=== PATIENT | female | born 1990 | race Caucasian/White ===

== ENCOUNTER 2018-07-19 00:29 | Outpatient (CLI) | payer MEDICAID, SELFPAY ==
--- NOTE | 2018-07-19 12:51 | DI.US_ITS ---
SYMPTOMS/DIAGNOSIS: MENORRHAGIA, M92.1-EXCESSIVE AND FREQUENT MENSTRUATION WITH IRREGULAR CYCLE, POLYCYSTIC OVARIAN SYNDROME, E28.2 PELVIC ULTRASOUND: Transabdominal and transvaginal examination was performed. The uterus measures 8 cm long x 3.9 cm AP x 3.8 cm transverse. The endometrial stripe is within normal limits at 1.0 cm. No myometrial masses present. Cervical nabothian cysts are noted. The right ovary measures 3.2 x 1.6 x 2.1 cm, the left ovary measures 2.7 x 1.7 x 2.4 cm. Small follicular cysts are present. There is normal blood flow to the ovaries. No suspicious ovarian mass or torsion is present. There is a small amount of free fluid in the cul-de-sac, which is likely physiologic. IMPRESSION: Essentially unremarkable pelvic ultrasound.
== END 2018-07-19 00:49 ==
PROVIDERS: PCP Nurse Practitioner; Visit Provider Nurse Practitioner
DX: N92.1 Excessive and frequent menstruation with irregular cycle (principal); E28.2 Polycystic ovarian syndrome
CPT/HCPCS: 76830; 76856

== ENCOUNTER 2019-05-08 12:03 | Outpatient (CLI) | payer MEDICAID, SELFPAY ==
[2019-05-08 12:40] LABS: HCT 46.1 % (36.0-46.0); HGB 15.3 g/dL (12.0-15.5); Mean Corp. HGB Concentration 33.2 g/dL (32.0-36.0); Mean Corpuscular Hemoglobin 30.4 pg (27.0-33.0); Mean Corpuscular Volume 91.7 fL (80-95); Mean Platelet Volume 11.7 fL (8.0-11.0); Platelet Count 274 x1000/uL (130-400); RBC 5.03 m/cumm (4.00-5.20); RBC Distribution Width 14.4 % (11.7-14.6); White Blood Cell Count 8.34 k/cumm (4.4-10.8)
[2019-05-08 13:00] LABS: Hemoglobin A1C 5.8 % (4.5-6.2)
[2019-05-08 13:26] LABS: ESR 23 mm/hr (0-20)
[2019-05-08 13:39] LABS: ALT 34 U/L (12-78); AST 15 U/L (15-37); Alkaline Phosphatase 81 U/L (46-116); Anion Gap 10.8 mmol/L (3-11); BUN 20 mg/dL (7-18); Bilirubin, Total 0.3 mg/dL (0.2-1.0); CO2 25.2 mmol/L (21.0-32.0); CREATININE 0.98 mg/dL (0.55-1.02); Calcium 9.2 mg/dL (8.5-10.1); Calculated LDL 169 mg/dL; Chloride 104 mmol/L (98-107); Cholesterol 234 mg/dL (50-200); Ferritin 114 ng/mL (8-388); Glucose 100 mg/dL (70-100); HDL Cholesterol 36 mg/dL (40-60); Potassium 4.5 mmol/L (3.5-5.1); Sodium 140 mmol/L (136-145); TSH (W/Ref FT4) 3.35 uIU/mL (0.36-3.74); Total Protein 7.8 g/dL (6.4-8.2); Triglyceride 148 mg/dL (30-150); Vitamin B12 439 pg/mL (193-986)
[2019-05-08 13:51] LABS: C-Reactive Protein 1.18 mg/dL (0.0-0.3)
[2019-05-09 10:48] LABS: Lyme Ab w Rflx to Lyme Confirm Negative
[2019-05-09 11:45] LABS: Rheumatoid Factor <8 IU/mL (<12.5)
[2019-05-09 14:13] LABS: ANA Interpretation Negative (NEGAT)
[2019-05-10 12:02] LABS: IgA 195 mg/dL (85-499); Interpretation SEE COMMENTS; Tissue Transglutaminase IgA <1.2 U/mL (<4.0)
== END 2019-05-08 12:23 ==
PROVIDERS: PCP Nurse Practitioner; Visit Provider Nurse Practitioner
DX: M25.40 Effusion, unspecified joint (principal); M25.50 Pain in unspecified joint; R53.83 Other fatigue; R14.0 Abdominal distension (gaseous)
CPT/HCPCS: 36415; 80053; 80061; 82784; 83516; 83721; 85027; 85652; 82607; 82728; 83036; 84443; 86038; 86140; 86431; 86618

== ENCOUNTER 2020-05-15 10:10 | Outpatient (CLI) | payer MEDICAID, SELFPAY ==
[2020-05-18 17:57] LABS: SARS-CoV-2 RNA Undetected (Undetected); SARS-CoV-2 Specimen Source Nasopharynx
== END 2020-05-15 10:30 ==
PROVIDERS: PCP Nurse Practitioner; Visit Provider Nurse Practitioner
DX: Z11.59 Encounter for screening for other viral diseases (principal)
CPT/HCPCS: U0003

== ENCOUNTER 2021-05-01 11:17 | Observation (INO) | payer MEDICAID, SELFPAY ==
[2021-05-01] VITALS (40 sets, daily range): BP systolic 105–149; BP diastolic 50–97; PULSE 56–143; RESP 9–24; TEMP 36.2–37.1; O2SAT 96–100
--- NOTE | 2021-05-01 11:15 | RT.EKG_ITS ---
APPROVED REPORT Exam: Resting ECG Reason for Exam: chest pain Patient Location: E HR:77 bpm ECG Measurements Heart Rate 77 AXIS [place] 138 P 38 QRSd 77 QRS 67 QT 362 T 49 QTc 409 Conclusion Sinus rhythm...normal P axis, V-rate 60- 99. No STEMI. I have reviewed and interpreted ECG and agree with software generated interpretation.
--- NOTE | 2021-05-01 11:24 | ED.GENADUL_ITS ---
Discharge Plan Disposition Patient Disposition: [facility] INPATIENT Condition: Stable Discharge Details Clinical Impression: Pulmonary emboli, DVT (deep venous thrombosis) Admit Date/Time: 05/01/21 15:01 Admit Provider: Alfa Martínez Attending Provider: Alfa Martínez Primary Care Provider: Mercedes Kasper ED Provider: Kirsten Funez Discharge Data Discharge Date/Time-TO BE ENTERED AT DEPARTURE: 05/01/21 16:32 Medical Decision Making Patient is a pleasant 31-year-old female, company by significant other, with chief complaint of right leg pain and chest tightness. She reports that the right leg pain began on the anterior aspect of the foot, she felt that this was more consistent with plantar fasciitis. States that over the past week however it has began to spread and is now up the posterior aspect of the knee into the a nterior thigh. She denies any trauma. She does state that initially she had some ecchymotic areas in this region which is resolved. Last night, she began having some chest tightness. States that this is worse when she is laying down or at rest, improves when upright and with activity. She denies any fevers or chills. Pain is not worse with deep inspiration or coughing. States that she is feeling quite anxious. She states that she her sister from complications with blood clot at the age of 28. Sister was a smoker and on hormonal supplements. On exam, patient appears anxious. She appears nontoxic. No respiratory distress, oxygen is 1% on the monitor currently. She is slightly tachycardic with a heart rate in the low 100s. Cardiac exam is otherwise normal with no m urmurs rubs or gallops. Lungs are clear on auscultation, abdomen benign. She is 2+ distal pulses. She does have pain with palpation over the heel and the arch of the foot consistent with her initial concern of plantar fasciitis. Did not appreciate any calf swelling, no palpable cord. No pain is elicited with palpation of the posterior aspect of the right lower extremity. Differential at this time is most concerning for DVT and possible PE. Also consider plantar fasciitis, muscle discomfort, electrolyte abnormality, anxiety. Will obtain baseline labs, EKG. Consistent with patient who is in agreement. Labs reviewed. No leukocytosis, stable H&H. Her D-dimer is elevated at 691. We will move forward with CT for PE protocol. Creatinine slightly elevated at 1.1, patient is receiving IV fluids currently. Troponin within normal limits. Given the length of time symptoms have been going on, I do not feel that repeat troponin is warranted. Patient just back from CT. We do have an ultrasound unavailable at this time for short period. Will move forward with DVT study of the right lower extremity. UDS negative CT reviewed the radiology: FINDINGS: Pulmonary arteries: There is a small right lower lobe embolus series 8, images 275-350 and series 10, images 48-50. There may be 1 or 2 tiny right upper lobe medial filling defects and 2 tiny left upper lobe subsegmental defects. Aorta: Unremarkable. No aortic aneurysm. No aortic dissection. Lungs: See Pulmonary arteries finding. Pleural spaces: Unremarkable. No pneumothorax. No pleural effusion. Heart: Unremarkable. No cardiomegaly. No pericardial effusion. Lymph nodes: Unremarkable. No enlarged lymph nodes. Bones/joints: Unremarkable. No acute fracture. Soft tissues: Unremarkable. IMPRESSION: Bilateral pulmonary emboli with overall small clot burden. Largest focus is at the right lung base. No evidence for right heart strain. discussed his findings with the patient. She became much more anxious after discussing this, particularly given her sister's passing few years ago from the same diagnosis. Begin anticoagulating the patient. Will give 0.5 mg of Ativan at her request to help with her anxiety. As patient does have bilateral clot burden, is incredibly anxious, I do feel that inpatient admission is appropriate at this time for continued monitoring. Patient voiced understanding and agreement with this plan. At her request, I did contact her mother to relay these findings. Consulted with Dr. Martínez who agrees to admission for continued monitoring in the setting of bilateral PE. He and I discussed the choice of anticoagulation plan with the patient to be done on [facility]. Patient also benefit from screening for congenital coagulopathy particularly with the of her sister at a young age. All of their questions and concerns were addressed in agreement with this plan. HPI General Mode of arrival: ambulatory . Date/Time Provider Initiated Documentation: 05/01/21 11:17 . Limitations to Documentation: no limitations . Information obtained by: patient, family (s/o) and RN notes reviewed . History of Present Illness 31 year old F presents to the emergency department with the chief complaint of right calf pain, chest tightness, described as moderate, with intensity rated at 6. Quality is described as aching, and is localized to the chest, right and lower extremity. Patient reports no radiation. Patient started experiencing this week(s) (1) and it has been constant (progressively worsening. CP began last night). Immobilization improves symptom(s), (RLQ pain improved with immobilization and elevation) and Movement improves symptom(s), (chest discomfort improves with movement) Patient notes chest pain, fever/chills (chills, no fevers), malaise and shortness of breath; denies cough, headaches, loss of appetite, nausea/vomiting, rash, syncope and weakness. Patient did receive the following treatments prior to arrival, none Related Data Home Medications Medication Instructions Recorded Confirmed acetaminophen [Tylenol] 650 mg PO Q6H PRN PRN #0 tab 05/02/21 Previous Rx's Medication Instructions Recorded acetaminophen [Tylenol] 650 mg PO Q6H PRN PRN #0 tab 05/02/21 Allergies Allergy/AdvReac Type Severity Reaction Status Date / Time No Known Allergies Allergy Verified 05/01/21 11:28 Review of Systems Constitutional Constitutional: Reports as per HPI, Denies chills, Denies fever(s), Denies headache(s), Denies lethargy and Denies poor appetite Eyes Eyes: Denies change in vision ENT Ears, Nose, Mouth, and Throat: Denies dizziness and Denies headache(s) Cardiovascular Cardiovascular: Reports as per HPI, Reports dyspnea and Denies dyspnea on exertion Respiratory Respiratory: Reports as per HPI, Denies chest congestion, Denies cough, Denies pain on inspiration, Denies pain with cough, Reports dyspnea, Denies dyspnea on exertion and Denies wheezing Gastrointestinal Gastrointestinal: Reports as per HPI, Denies abdominal pain, Denies diarrhea, Denies nausea and Denies vomiting Musculoskeletal Musculoskeletal: Reports as per HPI and Denies back pain Integumentary/Breasts Skin/Breast: Reports as per HPI and Denies rash Neurologic Neurologic: Reports as per HPI, Denies dizziness and Denies headache(s) Allergic/Immunologic Allergic/Immunologic: Denies wheezing [facility] Medical History Androgen-dependent hirsutism Anxiety and depression (04/11/18) Fatigue Joint pain Joint swelling PCOS (polycystic ovarian syndrome) Surgical History growth plate Family History Mother Diabetes Father Alcohol abuse Sister , Age 28- of a pulmonary embolism from a blood clot in her knee No problems noted. Sister COPD (chronic obstructive pulmonary disease) Social History Smoking/Tobacco Use Status: Former Tobacco Use Smoking risk assessment performed?: Yes Alcohol Intake: current Alcohol Intake frequency: holidays/special occasions only Drug use: Never Substance use type: does not use Number of Children: 0 current occupation: [employer] Do you feel safe at home: Yes Do you feel safe in your relationship?: Yes Female Reproductive History Menstrual control method: none Exam Const General: cooperative, healthy appearing, comfortable, no acute distress, well developed and anxious Nutritional Appearance: well nourished and overweight Orientation: alert, awake and oriented x3 HENMT Head: normal to inspection Ears: hearing grossly normal bilaterally Mouth: moist mucous membranes Chest Chest: normal inspection of the chest, normal palpation of entire chest wall and no crepitus Resp Effort & Inspection: normal respiratory effort, able to speak in complete sentences and no respiratory distress Auscultation: clear to auscultation bilaterally, no rales, no rhonchi and no wheezes Cardio Rate: regular rate Rhythm: regular rhythm Heart Sounds: S1 normal and S2 normal GI Inspection: normal to inspection, no edema and non-distended Palpation: soft, no hepatosplenomegaly, not firm, no guarding, not rigid and nontender Auscultation: normal bowel sounds Skin General skin exam: no rashes or lesions noted Trauma: no lacerations or abrasions Neuro General: patient alert, patient awake and patient oriented x3 Cognition: normal cognition Speech: speech normal Gait: normal gait Extrem General: normal to inspection, capillary refill normal, no pedal edema, normal gait and calf tenderness on the right Psych Appearance: grossly normal and well kempt Mental Status: mental status grossly normal Speech and Movement: speech and movement normal
--- NOTE | 2021-05-01 11:30 | DI.RAD_ITS ---
Exam(s) XR CHEST 2V PA LATERAL EXAM: XR CHEST 2V PA LATERAL CLINICAL HISTORY: chest heaviness. TECHNIQUE: 2D digital imaging was performed. COMPARISON: No exams were available for comparison FINDINGS: Heart size is normal. The mediastinum is not widened. Lungs are clear. No infiltrates nor pleural effusions. IMPRESSION: No acute pulmonary findings. DATA REPOSITORY: RADIATION DOSE DELIVERED:
[2021-05-01] MEDS: Normal Saline 1,000 ML 1000 ML IV (11:50)
[2021-05-01 11:58] LABS: Abs Immature Grans 0.02 10^3/uL (0.0-0.06); Absolute Basophil Count 0.06 10^3/uL (0.0-0.2); Absolute Eosinophil Count 0.38 10^3/uL (0.0-0.7); Absolute Lymphocyte Count 1.73 10^3/uL (1.2-3.4); Absolute Neutrophil Count 5.71 10^3/uL (1.2-6.7); Basophils % 0.7; Eosinophils % 4.5; HCT 42.9 % (36.0-46.0); HGB 14.3 g/dL (11.2-15.7); Immature Grans % 0.2; Lymphocytes % 20.6; MCH 30.8 pg (27.0-33.0); MCHC 33.3 % (32.0-36.0); MCV 92.3 fL (80-95); MPV 11.5 fL (8.0-11.0); Nucleated RBC 0 %; Platelet Count 250 10^3/uL (130-400); RBC 4.65 10^6/uL (3.93-5.22); RDW 13.1 % (11.7-14.6); RDW-SD 44.2 fL
[2021-05-01 12:15] LABS: ALT 26 U/L (14-59); AST 13 U/L (15-37); Albumin 3.7 g/dL (3.4-5.0); Alkaline Phosphatase 59 U/L (46-116); Anion Gap 12.8 mmol/L (3-11); BUN 17 mg/dL (7-18); Bilirubin, Total 0.2 mg/dL (0.2-1.0); CO2 22.2 mmol/L (21.0-32.0); CREATININE 1.1 mg/dL (0.55-1.02); Calcium 8.8 mg/dL (8.5-10.1); Chloride 105 mmol/L (98-107); Estimated GFR 58.72 (mL/min/1.73m2); Glucose 112 mg/dL (74-106); Magnesium 1.8 mg/dL (1.8-2.4); Potassium 4.3 mmol/L (3.5-5.1); Sodium 140 mmol/L (136-145); Total Protein 7.6 g/dL (6.4-8.2)
[2021-05-01 12:19] LABS: Troponin I < 0.05 ng/mL (<0.06)
[2021-05-01 12:37] LABS: D-Dimer 691 ng/mlFEU (<500)
--- NOTE | 2021-05-01 13:00 | DI.CT_ITS ---
Exam(s) CT CHEST PE CTA EXAM: CT CHEST PE CTA CLINICAL HISTORY: elevated d-dimer, SOB, leg pain. TECHNIQUE: Imaging Protocol: CT angiography of the chest was performed using pulmonary embolus alexey col. Multi planar reconstructions were performed. CONTRAST MATERIAL: Intravenous: Omnipaque 350 Contrast volume: 79 cc COMPARISON: Chest x-ray from today was reviewed FINDINGS: CHEST: PULMONARY ARTERIES: This study is positive for the presence of pulmonary emboli.There are small intra luminal filling defects evident in the right lung at the level right lower lobe in the region the pos terior basal segment. There is also an intraluminal filling defect measuring 5 millimeters length wi thin a right upper lobe artery. No obvious emboli in the opposite-left lung. LUNGS: There is no evidence of pulmonary infarction. No confluent infiltrates. No pleural effusions . No pneumothorax. No incidental significant nodules. There are no focal findings in the trachea a nd mainstem bronchi. MEDIASTINUM: There is no hilar nor mediastinal adenopathy. Visualized thyroid unremarkable. CARDIAC: Heart size is upper normal. There is no pericardial effusion.Caliber of the thoracic aorta is within normal limits. There is no significant shift of the interventricular septum. PARTIALLY VISUALIZED UPPERMOST ABDOMEN: No obvious findings OSSEOUS: No significant osseous lesions.. IMPRESSION: 1. Positive study for the presence of pulmonary emboli as described above in the right lung..No evide nce of pulmonary infarction. No pleural effusions. No intrathoracic adenopathy. RADIATION DOSE DELIVERED: 493.35mGy.cm Total DLP DATA REPOSITORY: All CT scans at this facility are submitted to the National Radiology Data Registry (NRDR) Dose Index Registry (DIR) with the [employer] ([employer]). RADIATION OPTIMIZATION: All CT scans at this facility use at least one of these dose optimization te chniques: automated exposure control; mA and/or kV adjustment per patient size (includes targeted exa ms where dose is matched to clinical indication); or iterative reconstruction.
[2021-05-01] MEDS: Omnipaque 350 MG/ML 100 ML BTL IV (13:10)
[2021-05-01] MEDS: Normal Saline - Diluent 50 ML VIAL IV (13:10)
--- NOTE | 2021-05-01 14:00 | DI.US_ITS ---
Exam(s) US LOWER EXTREMITY VENOUS RT EXAM: US LOWER EXTREMITY VENOUS RT CLINICAL HISTORY: posterior calf pain TECHNIQUE: Grayscale, color, and doppler imaging of the deep venous system of the lower extremity w as performed. COMPARISON: US US PELVIS TRANSVAGINAL from 07/19/2018 FINDINGS: There is no evidence of intraluminal thrombus and there is normal compression and augmentation demons trated within the common femoral vein, femoral vein, and popliteal vein. However, at the level of the calf there is intraluminal thrombus in evident in both peroneal veins mi d and distally, this with involvement over length of 8 cm.. This intraluminal thrombus is occlusive. The ipsilateral saphenofemoral junction is patent. IMPRESSION: 1. Positive study for DVT in the right calf involving both right peroneal veins. DATA REPOSITORY:
--- NOTE | 2021-05-01 14:35 | DI.VRAD_ITS ---
PROCEDURE INFORMATION: Exam: XR Chest Exam date and time: 05/01/2021 11:39 AM Age: 31 years old Clinical indication: Other: Chest tightness; Patient HX: PT has had left leg tightness, chest pain/heaviness x1 week TECHNIQUE: Imaging protocol: XR of the chest. Views: 2 views. COMPARISON: CR THORACIC SPINE 11/18/2014 1:53 PM FINDINGS: Lungs: Unremarkable. No consolidation. Pleural spaces: Unremarkable. No pleural effusion. No pneumothorax. Heart/Mediastinum: Unremarkable. No cardiomegaly. Bones/joints: Unremarkable. IMPRESSION: No evidence for acute abnormality in the chest. Dictated and Authenticated by: Oly Meehan MD. Ordering:TRACEY Curtis MD
--- NOTE | 2021-05-01 14:43 | DI.VRAD_ITS ---
PROCEDURE INFORMATION: Exam: CTA Chest With Contrast Exam date and time: 05/01/2021 1:04 PM Age: 31 years old Clinical indication: Other: Elevated d-dimer, SOB, leg pain TECHNIQUE: Imaging protocol: Computed tomographic angiography of the chest with contrast. 3D rendering (Not supervised by radiologist): MIP and/or 3D reconstructed images were created by the technologist. Radiation optimization: All CT scans at this facility use at least one of these dose optimization techniques: automated exposure control; mA and/or kV adjustment per patient size (includes targeted exams where dose is matched to clinical indication); or iterative reconstruction. Contrast material: OMNIPAQUE 350; Contrast volume: 79 ml; Contrast route: INTRAVENOUS (IV); COMPARISON: CR XR CHEST 2V PA LATERAL 05/01/2021 12:46 PM FINDINGS: Pulmonary arteries: There is a small right lower lobe embolus series 8, images 275-350 and series 10, images 48-50. There may be 1 or 2 tiny right upper lobe medial filling defects and 2 tiny left upper lobe subsegmental defects. Aorta: Unremarkable. No aortic aneurysm. No aortic dissection. Lungs: See Pulmonary arteries finding. Pleural spaces: Unremarkable. No pneumothorax. No pleural effusion. Heart: Unremarkable. No cardiomegaly. No pericardial effusion. Lymph nodes: Unremarkable. No enlarged lymph nodes. Bones/joints: Unremarkable. No acute fracture. Soft tissues: Unremarkable. IMPRESSION: Bilateral pulmonary emboli with overall small clot burden. Largest focus is at the right lung base. No evidence for right heart strain. I discussed case findings with Dr. Nance 05/01/2021 2:41 PM EDT. Dictated and Authenticated by: Oly Meehan MD. Ordering:TRACEY Curtis MD
[2021-05-01] MEDS: Apixaban 5 MG TAB 10 MG PO ×2 (15:20→22:34)
--- NOTE | 2021-05-01 15:27 | DI.VRAD_ITS ---
Addendum created by Oly Meehan MD on 05/01/2021 3:28:18 PM EDT: I discussed case findings with Dr. Nance 05/01/2021 3:27 PM EDT. Initial report created on 05/01/2021 3:26:45 PM EDT: PROCEDURE INFORMATION: Exam: US Duplex Right Lower Extremity Veins, Limited Exam date and time: 05/01/2021 2:07 PM Age: 31 years old Clinical indication: Other: Posterior calf pain TECHNIQUE: Imaging protocol: Real-time Duplex ultrasound of the Right Lower Extremity with 2-D munson scale, color Doppler flow and spectral waveform analysis with image documentation. Limited exam was focused on the right lower extremity veins. COMPARISON: SC US PELVIS TRANSVAGINAL 07/19/2018 9:51 PM FINDINGS: Right deep veins: The common femoral, femoral, proximal profunda femoral and popliteal veins are patent without thrombus. Normal Doppler waveforms. Normal compressibility and/or augmentation response. There is intraluminal thrombus seen involving the duplicated peroneal vein system of the right calf. Thrombus appears occlusive. Right superficial veins: Unremarkable. Saphenofemoral junction is patent without thrombus. Soft tissues: Unremarkable. IMPRESSION: Right peroneal vein DVT involves both duplicated veins. Dictated and Authenticated by: Oly Meehan MD. Ordering:TRACEY Curtis MD
[2021-05-01] MEDS: LORazepam 2 MG/ML VIAL 0.5 MG IVP (15:41)
--- NOTE | 2021-05-01 16:07 | HPE_ITS ---
Date of service: 05/01/21 Time of Service: 16:07 Assessment and Plan Assessment and plan (1) Anxiety and depression: Status: Chronic Assessment and plan: No current medications. Anxiety regarding current dx. Clonazepam tonight if needed for anxiety/sleep. (2) Family history of thrombosis in first degree relative: Status: Chronic Assessment and plan: Sister that from complications of pulmonary emboli. Testing for hypercoagulability will need to be delayed until no longer acute or on anticoagulant. Acute thrombosis transiently decreases protein C, protein S and antithrombin. (3) Obesity: Status: Chronic Assessment and plan: Risk factor. She doesn't describe any singular long period of time being sedentary but is not physical very active. (4) Pulmonary emboli: Status: Chronic Assessment and plan: No requirement for supplemental O2 Given the low clot burden, little likelyhood of R heart strain. Eliquis 10mg BID for 7 days, then 5mg BID. Suggest hematology f/u. (5) DVT (deep vein thrombosis) in : Status: Acute Assessment and plan: See pulmonary emboli. ALBA hose to RLE to help control edema and post-DVT pain. History of Present Illness History of Present Illness Chief Complaint: Right leg pain and chest tightness Narrative: This is a 31 yo female with past medical history of depression/anxiety, PCOS, with a FH of sister with pulmonary embolism that caused her . She endorsed appx 1 week of pain that began in the heeel of the R foot and then progressed to the posterior aspect of the knee and anterior thigh. She had noted ecchymoses in the affected area that resolved. The night prior to admission she noted chest tightness that is worse with lying or at rest and improved with being upright or active. She denied trauma, F/C, cough/sputum. She endorsed feeling anxious about these symptoms d/t the FH of her sister dying at age 28 from complications of a DVT/P.E. The patient does not smoke and is not on hormonal control. ED work up: CTA chest showed bilateral pulmonary emboli / small clot burden. RLE venous US showed peroneal vein DVT involving both duplicated veins. Review of Systems All systems reviewed & are unremarkable except as noted in HPI and below [facility] Medical History (Updated 05/01/21 @ 16:13 by Alfa Martínez MD) Androgen-dependent hirsutism Anxiety and depression (04/11/18) Fatigue Joint pain Joint swelling PCOS (polycystic ovarian syndrome) Surgical History growth plate Family History Mother Diabetes Father Alcohol abuse Sister , Age 28- of a pulmonary embolism from a blood clot in her knee No problems noted. Sister COPD (chronic obstructive pulmonary disease) Social History (Updated 07/16/18 @ 08:51 by Malgorzata Herrera LPN) Smoking/Tobacco Use Status: Former Tobacco Use Smoking risk assessment performed?: Yes Alcohol Intake: current Alcohol Intake frequency: holidays/special occasions only Drug use: Never Substance use type: does not use Number of Children: 0 current occupation: [employer] Do you feel safe at home: Yes Do you feel safe in your relationship?: Yes Female Reproductive History Menstrual control method: none Meds Allergies and Home Medications Allergies Allergy/AdvReac Type Severity Reaction Status Date / Time No Known Allergies Allergy Verified 05/01/21 11:28 Home Medications Medication Instructions Recorded Confirmed Type ibuprofen 600 mg tablet 600 mg PO QID PRN #120 tab 07/16/18 05/01/21 Rx acetaminophen 1,000 mg PO QID PRN 05/01/21 05/01/21 History Exam Const General: cooperative and no acute distress Nutritional Appearance: obese Orientation: alert and oriented x3 Resp Effort & Inspection: normal respiratory effort Auscultation: clear to auscultation bilaterally Cardio Rate: regular rate Rhythm: regular rhythm Heart Sounds: S1 normal and S2 normal GI Palpation: soft and nontender Extrem General: no pedal edema and no calf tenderness Psych Appearance: grossly normal Mental Status: mental status grossly normal Speech and Movement: speech and movement normal Affect: normal affect Results Labs Result diagrams: 05/01/21 11:35 05/01/21 11:35 Labs: Laboratory Results - last 24 hr 05/01/21 05/01/21 05/01/21 11:35 11:35 11:55 WBC 8.40 RBC 4.65 Hgb 14.3 Hct 42.9 MCV 92.3 MCH 30.8 MCHC 33.3 RDW 13.1 Plt Count 250 MPV 11.5 H Immature Gran % 0.2 Neutrophils % 68.0 Lymphocytes % 20.6 Monocytes % 6.0 Eosinophils % 4.5 Basophils % 0.7 Nucleated RBC % 0 Absolute Neutrophils 5.71 Absolute Lymphocytes 1.73 Absolute Monocytes 0.50 Absolute Eosinophils 0.38 Absolute Basophils 0.06 D-Dimer 691 H Sodium 140 Potassium 4.3 Chloride 105 Carbon Dioxide 22.2 Anion Gap 12.8 H BUN 17 Creatinine 1.1 H Estimated GFR/1.73 m2 58.72 Glucose 112 H Calcium 8.8 Magnesium 1.8 Total Bilirubin 0.2 AST 13 L ALT 26 Alkaline Phosphatase 59 Troponin I < 0.05 Total Protein 7.6 Albumin 3.7 Last Vital Signs Temp 36.2 C L 05/01/21 11:21 Pulse 64 05/01/21 14:32 Resp 14 05/01/21 15:20 BP 130/76 05/01/21 14:32 Pulse Ox 99 05/01/21 15:20
[2021-05-01 17:02] LABS: Source Nasal/Nares
[2021-05-01] MEDS: Acetaminophen 325 MG TAB 650 MG PO (17:55)
[2021-05-01 18:06] LABS: COVID-19 PCR Negative (Negative)
[2021-05-01] MEDS: clonazePAM 0.5 MG TAB PO (21:33)
[2021-05-01] MEDS: Melatonin 3 MG TAB PO (21:33)
[2021-05-02] MEDS: Acetaminophen 325 MG TAB 650 MG PO (04:13)
[2021-05-02 05:54] VITALS: BP 125/74; PULSE 67; RESP 17; TEMP 36.4; O2SAT 98
[2021-05-02 07:29] LABS: Anion Gap 8.8 mmol/L (3-11); BUN 13 mg/dL (7-18); CO2 26.2 mmol/L (21.0-32.0); CREATININE 0.8 mg/dL (0.55-1.02); Calcium 8.9 mg/dL (8.5-10.1); Chloride 104 mmol/L (98-107); Glucose 89 mg/dL (74-106); Sodium 139 mmol/L (136-145)
[2021-05-02 08:09] VITALS: BP 131/79; PULSE 86; RESP 15; O2SAT 100
[2021-05-02] MEDS: Apixaban 5 MG TAB 10 MG PO (08:10)
--- NOTE | 2021-05-02 08:16 | W.PM.DS.N ---
Date of service: 05/02/21 Time of Service: 08:18 DS: Diagnosis Discharge Diagnosis (1) Anxiety and depression: Status: Chronic (2) Family history of thrombosis in first degree relative: Status: Chronic (3) Obesity: Status: Chronic (4) Pulmonary emboli: Status: Chronic (5) DVT (deep vein thrombosis) in : Status: Acute Discharge Plan Disposition Patient Disposition: HOME Condition: Stable Discharge Details Reason For Visit: PULMONARY EMBOLI Admit Date/Time: 05/01/21 15:01 Admit Provider: Alfa Martínez Attending Provider: Alfa Martínez Primary Care Provider: Mercedes Kasper Hospital Course Hospital Course: Right leg pain and chest tightness Narrative: This is a 31 yo female with past medical history of depression/anxiety, PCOS, with a FH of sister with pulmonary embolism that caused her . She endorsed appx 1 week of pain that began in the heeel of the R foot and then progressed to the posterior aspect of the knee and anterior thigh. She had noted ecchymoses in the affected area that resolved. The night prior to admission she noted chest tightness that is worse with lying or at rest and improved with being upright or active. She denied trauma, F/C, cough/sputum. She endorsed feeling anxious about these symptoms d/t the FH of her sister dying at age 28 from complications of a DVT/P.E. The patient does not smoke and is not on hormonal control. ED work up: CTA chest showed bilateral pulmonary emboli / small clot burden. RLE venous US showed peroneal vein DVT involving both duplicated veins. Acetaminophen and Tramadol initiated for RLE pain control. She will continue on Eliquis 10mg BID for 12 more doses, then 5 mg BID. Follow up with her PCP in 1-2 weeks. Discuss with her PCP on possible hematology appt to evaluate for a thrombophilia. Home Meds and New Rx's Prescriptions: New acetaminophen [Tylenol] 325 mg Tablet 650 mg PO Q6H PRN PRNQty: 0 RF: 0 tramadol 100 mg tablet 100 mg PO BID PRNQty: 10 RF: 0 Eliquis 5 mg Tablet See Rx Instructions .ROUTE .COMPLEX Qty: 60 RF: 0 Discontinued ibuprofen 600 mg tablet 600 mg PO QID PRN (Reason: pain) Qty: 120 RF: 6 acetaminophen 500 mg Tablet 1,000 mg PO QID PRNRF: 0 Discharge Instructions Instructions: Pulmonary Embolism (GEN), Deep Vein Thrombosis (GEN) Stand Alone Forms: Nursing Discharge Form Activity:: Activity as Tolerated Equipment/Supplies:: No Equipment Needed Diet:: As Tolerated Discharge Orders Discharge Orders: Discharge Order (Routine); Ordered 05/02/21 Ordered By: Alfa Martínez DS: Summary Time Spent with Patient providing and/or coordinating discharge services: Less than 30 minutes Status at Discharge Functional status at discharge: independent ambulation Overall status at discharge: patient is not back to baseline Mental Status: mental status grossly normal Speech and Movement: speech and movement normal Mood: congruent mood Affect: normal affect Exam Const General: cooperative and no acute distress Nutritional Appearance: obese Orientation: alert and oriented x3 Resp Effort & Inspection: normal respiratory effort Auscultation: clear to auscultation bilaterally Cardio Rate: regular rate Rhythm: regular rhythm Heart Sounds: S1 normal and S2 normal Extrem General: no pedal edema and calf tenderness on the right Psych Appearance: grossly normal Mental Status: mental status grossly normal Speech and Movement: speech and movement normal Mood: congruent mood Affect: normal affect DS: Data Vitals/I&O Vitals and I&O: Vital Signs Temperature 36.4 C L 05/02/21 05:54 Temperature Source Tympanic 05/02/21 08:09 Pulse 86 05/02/21 08:09 Pulse Rhythm Regular 05/02/21 02:44 Pulse 81 05/01/21 16:10 Respiratory Rate 15 05/02/21 08:09 Respiratory Effort Non-Labored 05/02/21 02:44 Respiratory Depth Normal 05/02/21 02:44 Respiratory Pattern Normal 05/02/21 02:44 Blood Pressure 131/79 05/02/21 08:09 Blood Pressure Mean 90 05/01/21 14:32 Blood Pressure Position Sitting 05/01/21 11:21 Pulse Oximetry 100 05/02/21 08:09 Oxygen Delivery Method Room Air 05/02/21 08:09 Oxygen Flow Rate 0 05/02/21 08:09 Pain Level 8 05/02/21 08:09 Comment 05/01/21 19:10 Intake & Output 05/01/21 05/01/21 05/02/21 11:59 23:59 11:59 Intake Total 1269 1260 / 1270 110 / 110 Balance 1269 1260 / 1270 110 / 110 Weight 108.862 kg Intake: IV 0 1010 / 1020 Oral 250 / 250 100 / 100 Other: Urine Color Yellow Urine Appearance Clear Clear Urine Odor Normal Comment Patient voided in toilet independently. Voiding Methods Toilet Data Completed and Pending Labs on day of discharge: Labs from last 24 hours 05/02/21 05/01/21 05/01/21 06:30 16:15 11:55 WBC RBC Hgb Hct MCV MCH MCHC RDW Plt Count MPV Immature Gran % Neutrophils % Lymphocytes % Monocytes % Eosinophils % Basophils % Nucleated RBC % Absolute Neutrophils Absolute Lymphocytes Absolute Monocytes Absolute Eosinophils Absolute Basophils D-Dimer 691 H Sodium 139 Potassium 4.0 Chloride 104 Carbon Dioxide 26.2 Anion Gap 8.8 BUN 13 Creatinine 0.8 Estimated GFR/1.73 m2 >= 60.00 Glucose 89 Calcium 8.9 Magnesium Total Bilirubin AST ALT Alkaline Phosphatase Troponin I Total Protein Albumin COVID-19 Source Nasal/Nares SARS-CoV-2 (PCR) Negative 05/01/21 05/01/21 11:35 11:35 WBC 8.40 RBC 4.65 Hgb 14.3 Hct 42.9 MCV 92.3 MCH 30.8 MCHC 33.3 RDW 13.1 Plt Count 250 MPV 11.5 H Immature Gran % 0.2 Neutrophils % 68.0 Lymphocytes % 20.6 Monocytes % 6.0 Eosinophils % 4.5 Basophils % 0.7 Nucleated RBC % 0 Absolute Neutrophils 5.71 Absolute Lymphocytes 1.73 Absolute Monocytes 0.50 Absolute Eosinophils 0.38 Absolute Basophils 0.06 D-Dimer Sodium 140 Potassium 4.3 Chloride 105 Carbon Dioxide 22.2 Anion Gap 12.8 H BUN 17 Creatinine 1.1 H Estimated GFR/1.73 m2 58.72 Glucose 112 H Calcium 8.8 Magnesium 1.8 Total Bilirubin 0.2 AST 13 L ALT 26 Alkaline Phosphatase 59 Troponin I < 0.05 Total Protein 7.6 Albumin 3.7 COVID-19 Source SARS-CoV-2 (PCR) [facility] Medical History Androgen-dependent hirsutism Anxiety and depression (04/11/18) Fatigue Joint pain Joint swelling PCOS (polycystic ovarian syndrome) Surgical History growth plate Family History Mother Diabetes Father Alcohol abuse Sister , Age 28- of a pulmonary embolism from a blood clot in her knee No problems noted. Sister COPD (chronic obstructive pulmonary disease) Social History Smoking/Tobacco Use Status: Former Tobacco Use Smoking risk assessment performed?: Yes Alcohol Intake: current Alcohol Intake frequency: holidays/special occasions only Drug use: Never Substance use type: does not use Number of Children: 0 current occupation: [employer] Do you feel safe at home: Yes Do you feel safe in your relationship?: Yes Female Reproductive History Menstrual control method: none
[2021-05-02] MEDS: traMADol 50 MG TAB 100 MG PO (08:40)
== END 2021-05-02 11:14 | disposition home or self-care (01) ==
LOC: ER 15:19 → MS 16:29
PROVIDERS: Admitting Provider Family Medicine; Emergency Provider Physician Assistant; PCP Nurse Practitioner; Visit Provider Family Medicine
DX: I26.99 Other pulmonary embolism without acute cor pulmonale (principal); I82.451 Acute embolism and thrombosis of right peroneal vein; F41.8 Other specified anxiety disorders; E28.2 Polycystic ovarian syndrome; R53.83 Other fatigue; E66.9 Obesity, unspecified; Z68.36 Body mass index [BMI] 36.0-36.9, adult; Z20.822 Contact with and (suspected) exposure to COVID-19
CPT/HCPCS: 36415; 71275; 80048; 80053; 81025; 87635; 93005; 96361; 96374; 99285; 71046; 83735; 84484; 85025; 85379; 93010; 93971; 99217; 99220; G0378; J2060; J3490

== ENCOUNTER 2021-05-22 12:13 | Emergency (ER) | payer MEDICAID, SELFPAY ==
[2021-05-22] VITALS (44 sets, daily range): BP systolic 92–123; BP diastolic 52–83; PULSE 71–114; RESP 10–29; TEMP 36.8; O2SAT 96–99
--- NOTE | 2021-05-22 12:30 | RT.EKG_ITS ---
APPROVED REPORT Exam: Resting ECG Reason for Exam: chest tightness Patient Location: E HR:88 bpm ECG Measurements Heart Rate 88 AXIS NM 156 P 52 QRSd 81 QRS 44 QT 361 T 38 QTc 438 Conclusion Sinus rhythm...normal P axis, V-rate 60- 99. No STEMI. I have reviewed and interpreted ECG and agree with software generated interpretation.
--- NOTE | 2021-05-22 12:45 | DI.CT_ITS ---
Exam(s) CT CHEST PE CTA EXAM: CT CHEST PE CTA CLINICAL HISTORY: recent PE, worsening sx. TECHNIQUE: Imaging Protocol: Axial CT angiography was performed with multi-slice acquisition and mu lti-planar and/or 3D reconstructions. CONTRAST MATERIAL: Intravenous: Omnipaque 350 Contrast volume:structured data in ml COMPARISON: CT CT CHEST PE CTA from 05/01/2021 FINDINGS: CT angiography of the chest was performed with intravenous infusion of 100 cc of Omnipaque 350. The lungs are clear. No pleural effusion. Tracheobronchial tree appears intact. No evidence of pulmonary embolic disease. Thoracic aorta is of normal diameter, no thoracic aortic an eurysm or dissection, major branch vessels appear intact. No mediastinal or hilar adenopathy. Images obtained through the upper abdomen show unremarkable appearance of the visualized portions of the liver, spleen, pancreas, adrenals, and kidneys. IMPRESSION: Negative CT angiogram of the chest. No evidence of pulmonary embolic disease. Pulmonary emboli ident ified on prior study of May 01 appear to have resolved. RADIATION DOSE DELIVERED: 453.42mGy.cm Total DLP 453.42mGy.cm Total DLP 14.4mGy CTDIvol DATA REPOSITORY: All CT scans at this facility are submitted to the National Radiology Data Registry (NRDR) Dose Index Registry (DIR) with the [employer] [place] [employer] ([employer]). RADIATION OPTIMIZATION: All CT scans at this facility use at least one of these dose optimization te chniques: automated exposure control; mA and/or kV adjustment per patient size (includes targeted exa ms where dose is matched to clinical indication); or iterative reconstruction.
[2021-05-22 13:00] LABS: Abs Immature Grans 0.02 10^3/uL (0.0-0.06); Absolute Basophil Count 0.05 10^3/uL (0.0-0.2); Absolute Lymphocyte Count 2.28 10^3/uL (1.2-3.4); Absolute Monocyte Count 0.56 10^3/uL (0.1-0.8); Absolute Neutrophil Count 5.26 10^3/uL (1.2-6.7); Basophils % 0.6; Eosinophils % 4.7; HCT 42.4 % (36.0-46.0); HGB 14.1 g/dL (11.2-15.7); Immature Grans % 0.2; Lymphocytes % 26.6; MCH 31.1 pg (27.0-33.0); MCHC 33.3 % (32.0-36.0); MCV 93.6 fL (80-95); MPV 11.7 fL (8.0-11.0); Monocytes % 6.5; Neutrophils % 61.4; Nucleated RBC 0 %; Platelet Count 259 10^3/uL (130-400); RBC 4.53 10^6/uL (3.93-5.22); RDW 12.7 % (11.7-14.6); RDW-SD 43.8 fL; WBC 8.57 10^3/uL (4.4-10.8)
[2021-05-22 13:12] LABS: PTT Activated 22.9 sec (21.0-27.5); Prothrombin Time 9.8 sec (9.3-11.0)
--- NOTE | 2021-05-22 13:14 | W.ED.GENAD ---
Discharge Plan Disposition Patient Disposition: STILL A PATIENT Condition: Stable Discharge Details Clinical Impression: Chest pressure, [place] (dyspnea on exertion) Primary Care Provider: Mercedes Kasper ED Provider: Marcos Sosa Home Meds and New Rx's Prescriptions: Continued acetaminophen [Tylenol] 325 mg Tablet 650 mg PO Q6H PRN PRNQty: 0 RF: 0 tramadol 100 mg tablet 100 mg PO BID PRNQty: 10 RF: 0 Eliquis 5 mg Tablet See Rx Instructions .ROUTE .COMPLEX Qty: 60 RF: 0 Discharge Instructions Instructions: Dyspnea (ED) Additional Instructions: Follow-up with your primary care physician, and with your doctor at your scheduled appointment regarding possible additional follow-up Your CT scan does not show evidence of remaining pulmonary embolism or blood clot in your lung Continue on your Eliquis Follow-up with hematology, check in with your doctor be sure this appointment has been set up Also recommend outpatient heart rate monitor, give the office a call on Monday Please return earlier should you have new or worsening complaints including chest discomfort, worsening shortness of breath Discharge Data Discharge Date/Time-TO BE ENTERED AT DEPARTURE: 05/22/21 17:15 Medical Decision Making <DAIN Youssef - Last Filed: 05/23/21 08:02> 31-year-old female, recently diagnosed with DVT and PE, on Eliquis, presents for ongoing chest pressure, dyspnea with exertion. She is currently asymptomatic. Clinically she appears well, nontoxic. She appears hemodynamically stable, pulse 86, O2 sat 98% on room air. Given her family history, recent diagnosis, I certainly understand her concerns. We discussed options, will obtain a cardiac work-up and a repeat CTA of the chest to further evaluate for worsening PE load Initial laboratory values are all unremarkable for obvious emergent process. CTA negative, no visualization of residual PE. Patient remains asymptomatic. We discussed her laboratory values and CTA. We also discussed speaking with her primary care provider about a Holter monitor to further evaluate her concern of racing heartbeat. Patient is comfortable awaiting a delta troponin in the ER, to be drawn at approximately 1545. If negative, plan for discharge. Patient to contact her primary care provider on Monday to discuss her ongoing symptoms and need for outpatient reevaluation Medical Records Medical records reviewed: Yes I reviewed the patient's medical records. Imaging Data Radiologic Study: Attestation: I personally reviewed and interpreted this imaging study as follows: Imaging: CT Scan Radiologist's impression: Exam(s) CT CHEST PE CTA EXAM: CT CHEST PE CTA CLINICAL HISTORY: recent PE, worsening sx. TECHNIQUE: Imaging Protocol: Axial CT angiography was performed with multi-slice acquisition and multi-planar and/or 3D reconstructions. CONTRAST MATERIAL: Intravenous: Omnipaque 350 Contrast volume:structured data in ml COMPARISON: CT CT CHEST PE CTA from 05/01/2021 FINDINGS: CT angiography of the chest was performed with intravenous infusion of 100 cc of Omnipaque 350. The lungs are clear. No pleural effusion. Tracheobronchial tree appears intact. No evidence of pulmonary embolic disease. Thoracic aorta is of normal diameter, no thoracic aortic aneurysm or dissection, major branch vessels appear intact. No mediastinal or hilar adenopathy. Images obtained through the upper abdomen show unremarkable appearance of the visualized portions of the liver, spleen, pancreas, adrenals, and kidneys. IMPRESSION: Negative CT angiogram of the chest. No evidence of pulmonary embolic disease. Pulmonary emboli identified on prior study of May 01 appear to have resolved. Lab Data Lab results reviewed: Yes I reviewed the patient's lab results. Labs: Laboratory Tests Range/Units 05/22/21 05/22/21 05/22/21 12:30 12:30 12:30 WBC (4.4-10.8) 10^3/uL RBC (3.93-5.22) 10^6/uL Hgb (11.2-15.7) g/dL Hct (36.0-46.0) % MCV (80-95) fL MCH (27.0-33.0) pg MCHC (32.0-36.0) % RDW (11.7-14.6) % Plt Count (130-400) 10^3/uL MPV (8.0-11.0) fL Immature Gran % Neutrophils % Lymphocytes % Monocytes % Eosinophils % Basophils % Nucleated RBC % % Absolute Neutrophils (1.2-6.7) 10^3/uL Absolute Lymphocytes (1.2-3.4) 10^3/uL Absolute Monocytes (0.1-0.8) 10^3/uL Absolute Eosinophils (0.0-0.7) 10^3/uL Absolute Basophils (0.0-0.2) 10^3/uL PT (9.3-11.0) sec 9.8 INR (0.9-1.1) 1.0 APTT (21.0-27.5) sec 22.9 Sodium (136-145) mmol/L 140 Potassium (3.5-5.1) mmol/L 3.6 Chloride (98-107) mmol/L 104 Carbon Dioxide (21.0-32.0) mmol/L 26.1 Anion Gap (3-11) mmol/L 9.9 BUN (7-18) mg/dL 16 Creatinine (0.55-1.02) mg/dL 1.0 Estimated GFR/1.73 m2 (mL/min/1.73m2) >= 60.00 Glucose (74-106) mg/dL 101 Calcium (8.5-10.1) mg/dL 9.0 Magnesium (1.8-2.4) mg/dL 1.9 Total Bilirubin (0.2-1.0) mg/dL 0.3 AST (15-37) U/L 8 L ALT (14-59) U/L 18 Alkaline Phosphatase (46-116) U/L 64 Troponin I (<0.06) ng/mL < 0.05 NT-Pro-B Natriuret Pep (<300) pg/mL 86 Total Protein (6.4-8.2) g/dL 7.9 Albumin (3.4-5.0) g/dL 3.9 Range/Units 05/22/21 12:30 WBC (4.4-10.8) 10^3/uL 8.57 RBC (3.93-5.22) 10^6/uL 4.53 Hgb (11.2-15.7) g/dL 14.1 Hct (36.0-46.0) % 42.4 MCV (80-95) fL 93.6 MCH (27.0-33.0) pg 31.1 MCHC (32.0-36.0) % 33.3 RDW (11.7-14.6) % 12.7 Plt Count (130-400) 10^3/uL 259 MPV (8.0-11.0) fL 11.7 H Immature Gran % 0.2 Neutrophils % 61.4 Lymphocytes % 26.6 Monocytes % 6.5 Eosinophils % 4.7 Basophils % 0.6 Nucleated RBC % % 0 Absolute Neutrophils (1.2-6.7) 10^3/uL 5.26 Absolute Lymphocytes (1.2-3.4) 10^3/uL 2.28 Absolute Monocytes (0.1-0.8) 10^3/uL 0.56 Absolute Eosinophils (0.0-0.7) 10^3/uL 0.40 Absolute Basophils (0.0-0.2) 10^3/uL 0.05 PT (9.3-11.0) sec INR (0.9-1.1) APTT (21.0-27.5) sec Sodium (136-145) mmol/L Potassium (3.5-5.1) mmol/L Chloride (98-107) mmol/L Carbon Dioxide (21.0-32.0) mmol/L Anion Gap (3-11) mmol/L BUN (7-18) mg/dL Creatinine (0.55-1.02) mg/dL Estimated GFR/1.73 m2 (mL/min/1.73m2) Glucose (74-106) mg/dL Calcium (8.5-10.1) mg/dL Magnesium (1.8-2.4) mg/dL Total Bilirubin (0.2-1.0) mg/dL AST (15-37) U/L ALT (14-59) U/L Alkaline Phosphatase (46-116) U/L Troponin I (<0.06) ng/mL NT-Pro-B Natriuret Pep (<300) pg/mL Total Protein (6.4-8.2) g/dL Albumin (3.4-5.0) g/dL ECG Data Attestation: I personally reviewed and interpreted this ECG (s) as follows: Interpretation: Please see official report by Dr. Nance. Sinus rhythm, ventricular rate of 88, no STEMI <DAIN Valenzuela - Last Filed: 05/22/21 17:07> Patient was accepted in signout from Marcos Sosa, physician food service assistant pending repeat troponin, repeat troponin is negative Discussion with patient regarding need for follow-up Vitals stable at time of discharge home All questions answered to the best my ability, discharged home at 1700 asymptomatic with an oxygenation saturation of 97 and respirations of 13, pulse of 86 HPI <DAIN Youssef - Last Filed: 05/23/21 08:02> General Mode of arrival: ambulatory. Date/Time Provider Initiated Documentation: 05/22/21 12:46. Limitations to Documentation: no limitations. Information obtained by: patient. HPI Narrative: This is a 31-year-old female, past medical history that includes DVT, PE, on Eliquis, anxiety, depression, PCOS, presenting to the ER for evaluation of acute on chronic chest pressure, dyspnea with exertion. Patient states that she was recently diagnosed with a PE, on 05-01, taking Eliquis ever since. She has had ongoing sensations of chest pressure, dyspnea with exertion, heart racing, etc. She has been taking her medications as directed. She denies fever, cough, abdominal pain, nausea vomiting, pain or swelling in her legs. She is scheduled to be set up with hematology at [facility] for further evaluation of her symptoms. Patient states that she is extremely concerned because her sister of a PE a few years ago and with her ongoing symptoms she simply wants to be sure that there is nothing else wrong. She reports that at rest, currently, she is asymptomatic Related Data Home Medications Medication Instructions Recorded Confirmed Eliquis See Rx Instructions .ROUTE 05/02/21 05/22/21 .COMPLEX #60 tab acetaminophen [Tylenol] 650 mg PO Q6H PRN PRN #0 tab 05/02/21 05/22/21 tramadol 100 mg PO BID PRN #10 tab 05/02/21 05/22/21 Previous Rx's Medication Instructions Recorded Eliquis See Rx Instructions .ROUTE 05/02/21 .COMPLEX #60 tab acetaminophen [Tylenol] 650 mg PO Q6H PRN PRN #0 tab 05/02/21 tramadol 100 mg PO BID PRN #10 tab 05/02/21 Allergies Allergy/AdvReac Type Severity Reaction Status Date / Time No Known Allergies Allergy Verified 05/22/21 12:38 General Stated Complaint: SOB TREVIN: 2 Review of Systems <DAIN Youssef - Last Filed: 05/23/21 08:02> Constitutional Constitutional: Denies fatigue, Denies fever(s) and Denies weakness ENT Ears, Nose, Mouth, and Throat: Denies neck pain Cardiovascular Cardiovascular: Reports chest pain, Reports dyspnea and Reports dyspnea on exertion Respiratory Respiratory: Denies cough, Reports dyspnea and Reports dyspnea on exertion Gastrointestinal Gastrointestinal: Denies abdominal pain, Denies nausea and Denies vomiting Musculoskeletal Musculoskeletal: Denies back pain, Denies neck pain, Denies numbness and Denies tingling Integumentary/Breasts Skin/Breast: Denies erythema and Denies rash Neurologic Neurologic: Denies numbness, Denies tingling and Denies weakness Psychiatric Psychiatric: Reports anxiety Endocrine Endocrine: Denies fatigue Hematologic/Lymphatic Hematologic/Lymphatic: Reports easy bleeding and Reports easy bruising PFSH <DAIN Youssef - Last Filed: 05/23/21 08:02> Medical History Androgen-dependent hirsutism Anxiety and depression (04/11/18) Fatigue Joint pain Joint swelling PCOS (polycystic ovarian syndrome) Surgical History growth plate Family History Mother Diabetes Father Alcohol abuse Sister , Age 28- of a pulmonary embolism from a blood clot in her knee No problems noted. Sister COPD (chronic obstructive pulmonary disease) Social History Smoking/Tobacco Use Status: Former Tobacco Use Smoking risk assessment performed?: Yes Alcohol Intake: current Alcohol Intake frequency: holidays/special occasions only Drug use: Occasionally Substance use type: marijuana Number of Children: 0 current occupation: [employer] Do you feel safe at home: Yes Do you feel safe in your relationship?: Yes Female Reproductive History Menstrual control method: none Exam <DAIN Youssef - Last Filed: 05/23/21 08:02> Const General: cooperative, healthy appearing, comfortable and no acute distress Orientation: alert and awake HENMA Head: normal to inspection, normocephalic and atraumatic Mouth: moist mucous membranes Eyes General: appearance normal, both eyes and all related structures Conjunctivae: conjunctivae normal Neck Neck: normal visual inspection, full ROM, trachea midline and supple Resp Effort & Inspection: normal respiratory effort and able to speak in complete sentences Auscultation: clear to auscultation bilaterally Cardio Rate: regular rate Rhythm: regular rhythm GI Palpation: soft, not firm, no guarding and nontender Back/Spine/Pelvis Back: No back tenderness Skin General skin exam: no rashes or lesions noted Neuro General: patient alert, patient awake, moves all extremities and no focal motor deficits Cognition: normal cognition Speech: speech normal Gait: normal gait Motor: muscle tone normal throughout Sensory Exam: no sensory deficits noted Extrem General: normal to inspection, full ROM, capillary refill normal, no pedal edema and no calf tenderness Psych Appearance: grossly normal Mental Status: mental status grossly normal Course <DAIN Youssef - Last Filed: 05/23/21 08:02> Vital Signs Vital signs: Vital Signs Temperature 36.8 C 05/22/21 12:34 Pulse 92 H 05/22/21 12:34 Respiratory Rate 15 05/22/21 12:34 Blood Pressure 116/71 05/22/21 12:34 Pulse Oximetry 99 05/22/21 12:34 Temperature 36.8 C 05/22/21 12:34 Temperature Source Skin 05/22/21 12:34 Pulse 92 H 05/22/21 12:34 Respiratory Rate 16 05/22/21 12:39 Respiratory Effort Non-Labored 05/22/21 12:39 Respiratory Depth Normal 05/22/21 12:39 Respiratory Pattern Normal 05/22/21 12:39 Blood Pressure 116/71 05/22/21 12:34 Blood Pressure Position Supine 05/22/21 12:34 Pulse Oximetry 99 05/22/21 12:34 Oxygen Delivery Method Room Air 05/22/21 12:34 Oxygen Flow Rate 0 05/22/21 12:34 Pain Level 0 05/22/21 12:34 Lab/Test Results Lab/Test Results: Laboratory Tests Range/Units 05/22/21 12:30 WBC (4.4-10.8) 10^3/uL 8.57 RBC (3.93-5.22) 10^6/uL 4.53 Hgb (11.2-15.7) g/dL 14.1 Hct (36.0-46.0) % 42.4 MCV (80-95) fL 93.6 MCH (27.0-33.0) pg 31.1 MCHC (32.0-36.0) % 33.3 RDW (11.7-14.6) % 12.7 Plt Count (130-400) 10^3/uL 259 MPV (8.0-11.0) fL 11.7 H Immature Gran % 0.2 Neutrophils % 61.4 Lymphocytes % 26.6 Monocytes % 6.5 Eosinophils % 4.7 Basophils % 0.6 Nucleated RBC % % 0 Absolute Neutrophils (1.2-6.7) 10^3/uL 5.26 Absolute Lymphocytes (1.2-3.4) 10^3/uL 2.28 Absolute Monocytes (0.1-0.8) 10^3/uL 0.56 Absolute Eosinophils (0.0-0.7) 10^3/uL 0.40 Absolute Basophils (0.0-0.2) 10^3/uL 0.05
[2021-05-22 13:16] LABS: ALT 18 U/L (14-59); AST 8 U/L (15-37); Albumin 3.9 g/dL (3.4-5.0); Alkaline Phosphatase 64 U/L (46-116); Anion Gap 9.9 mmol/L (3-11); BUN 16 mg/dL (7-18); Bilirubin, Total 0.3 mg/dL (0.2-1.0); CO2 26.1 mmol/L (21.0-32.0); Chloride 104 mmol/L (98-107); Glucose 101 mg/dL (74-106); Magnesium 1.9 mg/dL (1.8-2.4); Potassium 3.6 mmol/L (3.5-5.1); Sodium 140 mmol/L (136-145); Total Protein 7.9 g/dL (6.4-8.2); Troponin I < 0.05 ng/mL (<0.06)
[2021-05-22 13:19] LABS: NT-proBNP 86 pg/mL (<300)
[2021-05-22] MEDS: Omnipaque 350 MG/ML 100 ML BTL IV (13:42)
[2021-05-22 16:45] LABS: Troponin I < 0.05 ng/mL (<0.06)
== END 2021-05-22 17:15 | disposition still patient (30) ==
PROVIDERS: Nurse Practitioner Adult Health; Emergency Provider Physician Assistant; PCP Nurse Practitioner
DX: R07.89 Other chest pain; R06.09 Other forms of dyspnea; Z86.711 Personal history of pulmonary embolism
CPT/HCPCS: 36415; 71275; 80053; 93005; 99285; 83735; 83880; 84443; 84484; 85025; 85610; 85730; 93010; 99284; J3490

== ENCOUNTER 2022-11-29 11:01 | Outpatient (REF) | payer MEDICAID, SELFPAY | END 2022-11-29 11:02 | disposition home or self-care (01) | LOC: LBN 11:01 | PROVIDERS: PCP Nurse Practitioner; Visit Provider Nurse Practitioner | DX: R30.0 Dysuria; R10.2 Pelvic and perineal pain; E28.2 Polycystic ovarian syndrome | CPT/HCPCS: 87086 ==

== ENCOUNTER 2024-04-05 12:26 | Emergency (ER) | payer SELFPAY ==
[2024-04-05] VITALS (15 sets, daily range): BP systolic 102–167; BP diastolic 45–150; PULSE 55–79; RESP 12–25; TEMP 36.7; O2SAT 99
--- NOTE | 2024-04-05 12:30 | RT.EKG_ITS ---
APPROVED REPORT Exam: Resting ECG Reason for Exam: Possible PE Patient Location: E HR:57 bpm ECG Measurements Heart Rate 57 AXIS IL 135 P 39 QRSd 84 QRS 49 QT 421 T 47 QTc 409 Conclusion Sinus bradycardia...rate< 60
--- NOTE | 2024-04-05 12:45 | DI.US_ITS ---
Exam(s) US LOWER EXTREMITY VENOUS RT EXAM: US LOWER EXTREMITY VENOUS RT CLINICAL HISTORY: hx of PE, calf pain. TECHNIQUE: Lower extremity venous ultrasound performed using grayscale, color-flow, and spectral Do ppler analysis. COMPARISON: No exams were available for comparison FINDINGS: The common femoral, femoral and popliteal veins demonstrate normal compressibility, augmentation, and color Doppler. The posterior tibial veins are patent. No saphenous vein thrombosis or other superfi cial venous thrombosis is seen. No hematoma or Moss's cyst is seen. IMPRESSION: Negative lower extremity ultrasound. No evidence of DVT. DATA REPOSITORY:
--- NOTE | 2024-04-05 13:02 | ED.GENADUL_ITS ---
Discharge Plan Disposition Patient Disposition: Home Condition: Stable Discharge Details Clinical Impression: Shortness of breath Primary Care Provider: Mercedes Kasper ED Provider: Facundo Fajardo Home Meds and New Rx's Prescriptions: Continued acetaminophen [Tylenol] 325 mg Tablet 650 mg PO Q6H PRN PRNQty: 0 0RF Discharge Instructions Care Plan Goals: Your CAT scan, ultrasound and blood work did not show any concerning findings at this time Follow-up with your primary care provider within 1 week especially if you are having symptoms If you feel more ill, have severe chest pain or worsening shortness of breath return to the emergency department for reevaluation HPI General Mode of arrival: ambulatory . Date/Time Provider Initiated Documentation: 04/05/24 12:30 . Limitations to Documentation: no limitations . Information obtained by: patient . History of Present Illness 33 year old F presents to the emergency department with the chief complaint of dyspnea, described as moderate, Patient started experiencing this day(s) (1) and it has been constant. No relieving factors improve symptom(s), No exacerbating factors reported . Patient notes denies chest pain, cough and fever/chills. Patient did receive the following treatments prior to arrival, none Related Data Home Medications Medication Instructions Recorded Confirmed acetaminophen 325 mg tablet 650 mg (2 x 325 mg) PO Q6H PRN PRN 05/02/21 11/29/22 (Tylenol) #0 tabs Previous Rx's Medication Instructions Recorded acetaminophen 325 mg tablet 650 mg (2 x 325 mg) PO Q6H PRN PRN 05/02/21 (Tylenol) #0 tabs Allergies Allergy/AdvReac Type Severity Reaction Status Date / Time No Known Allergies Allergy Verified 04/05/24 12:35 General Stated Complaint: SOB TREVIN: 3 Review of Systems All systems reviewed & are unremarkable except as noted in HPI and below Constitutional Constitutional: Denies chills, Denies fever(s) and Denies weakness Cardiovascular Cardiovascular: Denies chest pain and Reports dyspnea Respiratory Respiratory: Denies cough and Reports dyspnea Gastrointestinal Gastrointestinal: Reports vomiting Integumentary/Breasts Skin/Breast: Denies rash Neurologic Neurologic: Denies weakness Exam Const General: no acute distress Orientation: alert HENMT Head: normal to inspection Ears: external ears normal General nose exam: external nose normal Mouth: moist mucous membranes Eyes General: appearance normal, both eyes and all related structures Neck Neck: normal visual inspection Resp Effort & Inspection: normal respiratory effort and able to speak in complete sentences Auscultation: clear to auscultation bilaterally Cardio Jugular venous pressure: no JVD Rate: regular rate Heart Sounds: no murmurs GI Palpation: soft and nontender Skin General skin exam: no rashes or lesions noted Neuro General: patient alert and patient oriented x3 Extrem General: normal to inspection Psych Mental Status: mental status grossly normal Course Vital Signs Vital signs: Vital Signs Temperature 36.7 C 04/05/24 12:31 Pulse 73 04/05/24 12:31 Respiratory Rate 18 04/05/24 12:31 Blood Pressure 144/60 H 04/05/24 12:31 Pulse Oximetry 99 04/05/24 12:31 Temperature 36.7 C 04/05/24 12:36 Temperature Source Tympanic 04/05/24 12:36 Pulse 73 04/05/24 12:36 Respiratory Rate 18 04/05/24 12:36 Blood Pressure 144/60 H 04/05/24 12:36 Pulse Oximetry 99 04/05/24 12:36 Pain Level 0 04/05/24 12:36 Medical Decision Making 33-year-old female with a history of factor V Leiden with prior DVT and PE not currently on anticoagulation comes in with 1 day of shortness of breath. She says that yesterday she had nausea and vomiting and diarrhea that has improved but still has some shortness of breath. She denies any fevers, chills, chest pain. She is alert and oriented x 4 on arrival speaking in full sentences in no distress. She has clear lung sounds, no abdominal tenderness. She does have an achiness in her right calf without any noticeable swelling on exam and no palpable clot. Intact distal sensation and pulses. Given her history we will proceed with CTA to evaluate for PE along with a ultrasound of her right lower leg to evaluate for DVT and obtain CBC, CMP and troponin and monitor. Suspect she could just feel dehydrated from the likely GI illness she had. She has no abdominal tenderness now so do not feel any imaging of her abdomen indicated. Labs, CTA and ultrasound all negative. Patient hemodynamically stable, feels well and has no symptoms now. She had symptoms for over 3 hours ago feel delta troponin would be of benefit. She is stable for discharge, advised to follow-up with her PCP within 1 week and return precautions given Differential Diagnosis Differential Diagnosis: PE, gastroenteritis, anemia Medical Records Medical records reviewed: Yes I reviewed the patient's medical records. Imaging Data Radiologic Study: Attestation: I personally reviewed and interpreted this imaging study as follows: Imaging: Ultrasound Radiologist's impression: No acute findings Radiologic Study #2: Attestation: I personally reviewed and interpreted this imaging study as follows: Imaging: CT Scan Radiologist's impression: No acute findings Lab Data Lab results reviewed: Yes I reviewed the patient's lab results. ECG Data Attestation: I personally reviewed and interpreted this ECG (s) as follows: Prior ECG tracings: available for review Interpretation: sinus bradycardia rate of 57 pr 135 no stemi Quality:SDOH Health Related Social Needs: No Data to Display PFSH All Active Problems (Updated 04/05/24 @ 14:29 by Facundo Fajardo MD) Shortness of breath (Acute) SOBOE (shortness of breath on exertion) (Acute) Nausea vomiting and diarrhea (Acute) Pelvic pain (Acute) COVID (Acute ~02/08/22) Factor V Leiden mutation (Acute ~10/2021) 10/22/[address] Coley/[facility] Note Otitis externa (Acute) DVT (deep venous thrombosis) (Chronic) Chest pressure (Acute) [place] (dyspnea on exertion) (Acute) DVT (deep vein thrombosis) in (Acute) Pulmonary emboli (Chronic 04/2021) Encounter for screening laboratory testing for COVID-19 virus (Acute) Anxiety and depression (Chronic 04/11/18) Joint swelling (Acute) Joint pain (Acute) Fatigue (Acute) Family history of thrombosis in first degree relative (Chronic) Obesity (Chronic) BMI 40 Dysmenorrhea (Acute 11/17/16) Dyshidrotic eczema (Acute 01/11/18) Adjustment disorder with mixed anxiety and depressed mood (Acute 04/12/18) Ear pain, left (Acute) Mastoiditis of left side (Acute) Chronic otitis externa (Acute) Otitis media (Acute) Menorrhagia (Chronic) Polycystic ovaries (Chronic) Medical History (Updated 04/05/24 @ 14:29 by Facundo Fajardo MD) Androgen-dependent hirsutism Surgical History growth plate Family History Mother Diabetes Father Alcohol abuse Sister , Age 28- of a pulmonary embolism from a blood clot in her knee No problems noted. Sister COPD (chronic obstructive pulmonary disease) Social History Smoking/Tobacco Use Status: Former Tobacco Use Smoking risk assessment performed?: Yes Alcohol Intake: current Alcohol Intake frequency: holidays/special occasions only Drug use: Occasionally Substance use type: marijuana Number of Children: 0 current occupation: [employer] Do you feel safe at home: Yes Do you feel safe in your relationship?: Yes Female Reproductive History Menstrual control method: none
[2024-04-05 13:49] LABS: Abs Immature Grans 0.03 10^3/uL (0.0-0.06); Absolute Basophil Count 0.03 10^3/uL (0.0-0.2); Absolute Eosinophil Count 0.08 10^3/uL (0.0-0.7); Absolute Lymphocyte Count 1.65 10^3/uL (1.2-3.4); Absolute Monocyte Count 0.52 10^3/uL (0.1-0.8); Absolute Neutrophil Count 5.43 10^3/uL (1.2-6.7); Basophils % 0.4 %; HCT 42.6 % (36.0-46.0); HGB 14.3 g/dL (11.2-15.7); Immature Grans % 0.4 %; Lymphocytes % 21.3 %; MCH 31.4 pg (27.0-33.0); MCHC 33.6 % (32.0-36.0); MCV 94 fL (80-95); MPV 11.7 fL (8.0-11.0); Monocytes % 6.7 %; Neutrophils % 70.2 %; Platelet Count 211 10^3/uL (130-400); RBC 4.55 10^6/uL (3.93-5.22); RDW-SD 44.8 fL; WBC 7.74 10^3/uL (4.4-10.8)
[2024-04-05] MEDS: Omnipaque 350 MG/ML 100 ML BTL IJ (14:02)
[2024-04-05 14:03] LABS: PTT Activated 23.7 sec (23.6-32.8); Prothrombin Time 10.5 sec (9.1-11.1)
[2024-04-05] MEDS: Normal Saline - Diluent 50 ML VIAL IJ (14:05)
--- NOTE | 2024-04-05 14:08 | DI.CT_ITS ---
Exam(s) CT CHEST PE CTA EXAM: CT CHEST PE CTA CLINICAL HISTORY: hx of PE, dyspnea. TECHNIQUE: Imaging Protocol: Axial CT angiography was performed with multi-slice acquisition and mu lti-planar reconstructions as well as axial, coronal and sagittal MIP reconstructions. CONTRAST MATERIAL: Intravenous: Omnipaque 350 Contrast volume:100 ml COMPARISON: CT CT CHEST PE CTA from 05/22/2021 FINDINGS: Pulmonary Arteries: No evidence of filling defect to suggest pulmonary emboli. Tracheobronchial tree: No mucous plugging. Mediastinum and Shayla: No dominant adenopathy or fluid collection. Pulmonary parenchyma: No consolidation or dominant measurable mass. Pleura: No effusion or pneumothorax. Heart: The heart is not dilated. No coronary artery calcifications are seen. Aorta: Thoracic aorta non-dilated. No dissection. Upper abdomen: No acute findings. Bones: Unremarkable for age. Tubes, Catheters, and Lines: None Soft tissues: Unremarkable. IMPRESSION: No evidence of pulmonary embolism other acute abnormality in the chest.. RADIATION DOSE DELIVERED: 447.86mGy.cm Total DLP DATA REPOSITORY: All CT scans at this facility are submitted to the National Radiology Data Registry (NRDR) Dose Index Registry (DIR) with the [employer] ([employer]). RADIATION OPTIMIZATION: All CT scans at this facility use at least one of these dose optimization te chniques: automated exposure control; mA and/or kV adjustment per patient size (includes targeted exa ms where dose is matched to clinical indication); or iterative reconstruction.
[2024-04-05 14:09] LABS: ALT 21 U/L (14-59); AST 12 U/L (15-37); Albumin 4.3 g/dL (3.4-5.0); Alkaline Phosphatase 57 U/L (46-116); Anion Gap 10.6 mmol/L (3-11); BUN 14 mg/dL (7-18); Bilirubin, Total 0.74 mg/dL (0.2-1.0); CO2 24.4 mmol/L (21.0-32.0); Calcium 9.2 mg/dL (8.5-10.1); Chloride 105 mmol/L (98-107); Estimated GFR 77.24 (mL/min/1.73m2); Glucose 85 mg/dL (74-106); Lipase 66 U/L (16-77); Sodium 140 mmol/L (136-145); Total Protein 7.9 g/dL (6.4-8.2)
[2024-04-05 14:10] LABS: Troponin I < 50 ng/L (< or =60)
== END 2024-04-05 14:45 | disposition home or self-care (01) ==
LOC: ER 15:10
PROVIDERS: Emergency Provider Emergency Medicine; PCP Nurse Practitioner
DX: R06.02 Shortness of breath (principal); R11.2 Nausea with vomiting, unspecified; R51.9 Headache, unspecified; R00.1 Bradycardia, unspecified; D68.51 Activated protein C resistance; Z86.711 Personal history of pulmonary embolism; Z86.718 Personal history of other venous thrombosis and embolism; Z87.891 Personal history of nicotine dependence
CPT/HCPCS: 71275; 80053; 83690; 87637; 93005; 99285; 84484; 85025; 85610; 85730; 93010; 93971; 99284; J3490

== ENCOUNTER 2024-10-22 12:26 | Outpatient (CLI) | payer SELFPAY ==
[2024-10-22 23:11] LABS: HBs Antibody, Quant 12.2 mIU/mL (See Note); Hepatitis B Surface Ab Positive (See Note)
[2024-10-23 12:05] LABS: Measles IgG Antibody Positive (See Note); Mumps Antibody IgG Positive (See Note); Rubella IgG Ab (UVM) Positive (See Note)
[2024-10-23 12:08] LABS: Varicella IgG Antibody Positive (See Note)
== END 2024-10-22 12:27 | disposition home or self-care (01) ==
LOC: LBO 12:26
PROVIDERS: PCP Nurse Practitioner; Visit Provider Nurse Practitioner Family
DX: Z02.0 Encounter for examination for admission to educational institution (principal)
CPT/HCPCS: 36415; 86706; 86787; 86735; 86762; 86765